=== PATIENT | male | born 1960 | race Caucasian/White ===

== ENCOUNTER 2018-11-22 09:23 | Observation (INO) ==
[2018-11-22] MEDS ORDERED: Aspirin 325 MG TABLET PO ONE (09:39)
[2018-11-22] MEDS ORDERED: Nitroglycerin 0.4 MG TAB.SUBL SL PRN (09:39)
--- NOTE | 2018-11-22 09:42 | Emergency Department Note ---
Disposition Clinical Impression: Elevated troponin Chest pain Qualifiers: Chest pain type: unspecified Qualified Code(s): R07.9 - Chest pain, unspecified Disposition: Admitted As Inpatient Condition: Good Referrals: Hayden Hurd DO [Primary Care Provider] - Forms: ED Satisfaction Letter Time of Disposition: 10:54 Chest Pain HPI - General Chief Complaint: ED Chest Pain Stated Complaint: chest pain Time Seen by Provider: 11/22/18 09:25 Source: patient Mode of arrival: ambulatory Limitations: no limitations Vital Signs Reviewed: Yes Nursing Notes Reviewed: Yes - History of Present Illness HPI Narrative: 58-year-old male with history of coronary artery disease with 2 stents, tobacco use, COPD presents for evaluation of chest pain. Patient states symptom onset was last night initially with some neck and shoulder pain. Patient states that has since resolved and is complaining of primarily left-sided chest pressure that started upon waking up this morning. Patient also notes some left shoulder pain this morning as well. Denies any nausea vomiting or diaphoresis. Denies any fevers. No dyspnea. Patient does have a chronic cough. Patient's on dual antiplatelet therapy. No abdominal pain. No recent travel or history of DVT or PE. Severity scale (1-10): 3 - Related Data Home Medications Medication Instructions Recorded Confirmed Loratadine [Claritin] 10 mg PO DAILY 09/02/18 10/05/18 Oxycodone HCl/Acetaminophen 1 tab PO Q6H PRN 09/02/18 10/20/18 [Percocet 5-325 mg Tablet] Pantoprazole Sodium [Protonix] 40 mg PO DAILY 09/02/18 10/20/18 Amitriptyline HCl 25 mg PO DAILY 10/05/18 10/05/18 Clopidogrel [Plavix] 75 mg PO DAILY 10/05/18 10/20/18 Lisinopril [Zestril] 2.5 mg PO DAILY 10/05/18 10/20/18 Sertraline [Zoloft] 50 mg PO DAILY 10/05/18 10/20/18 Metoprolol XL (24 HR) Succ [Toprol 25 mg PO DAILY 10/20/18 Xl] Previous Rx's Medication Instructions Recorded Aspirin 81 mg PO DAILY #30 tab.chew 09/04/18 Rosuvastatin [Crestor] 40 mg PO HS #30 tablet 09/04/18 Ticagrelor [Brilinta] 90 mg PO BID #60 tablet 09/04/18 Allergies Allergy/AdvReac Type Severity Reaction Status Date / Time gabapentin [From Neurontin] AdvReac See Verified 06/28/18 07:42 Comments All systems ED: reviewed and negative except as stated. Constitutional: Denies: fever Cardiovascular: Reports: chest pain Respiratory: Reports: cough Gastrointestinal: Denies: abdominal pain, nausea, vomiting Chest Pain PMH - Past Medical History Medical history: Reports: arthritis, COPD, coronary artery disease, GERD, hyperlipidemia, myocardial infarction Psychiatric history: Reports: depression - Social History Smoking Status: Current every day smoker Alcohol use: Reports: none Drug use: Reports: none Physical Exam - General Limitations: no limitations General appearance: alert, in no apparent distress - Head Head exam: atraumatic, normocephalic, normal inspection - Eye Eye exam: Present: normal appearance, PERRL, EOMI - ENT ENT exam: normal exam - Neck Neck exam: Present: normal inspection - Chest Chest inspection: Present: normal inspection, symmetric chest wall rise - Respiratory Respiratory exam: Present: normal lung sounds bilaterally, prolonged expiratory phase. Absent: respiratory distress - Cardiovascular Cardiovascular exam: Present: regular rate, normal rhythm. Absent: normal heart sounds - Abdominal Exam Abdominal exam: Present: soft, Non-Tender - Extremities Exam Extremities exam: Present: normal inspection. Absent: pedal edema - Back Exam Back exam: Present: normal inspection - Neurological Exam Neurological exam: Present: alert, oriented X3, CN II-XII intact - Skin Skin exam: Present: warm, dry, intact, normal color Course - Reevaluation(s) Reevaluation #1: Patient seen and examined. Patient does have known coronary artery disease has recent heart attack within the past couple months with stents. Patient will get basic cardiopulmonary screening labs EKG chest x-ray. Disposition will likely be admission Time: 09:43 Reevaluation #2: Patient denies any chest pain currently. Time: 10:28 Vital Signs Temperature 98.2 F 11/22/18 09:31 Pulse Rate 73 11/22/18 09:31 Respiratory Rate 18 11/22/18 09:31 Blood Pressure 111/70 11/22/18 09:31 O2 Sat by Pulse Oximetry 97 11/22/18 09:31 Temperature 98.2 F 11/22/18 09:31 Pulse Rate 71 11/22/18 10:11 Respiratory Rate 18 11/22/18 10:11 Blood Pressure 107/69 11/22/18 10:11 O2 Sat by Pulse Oximetry 97 11/22/18 10:11 Oxygen Delivery Oxygen Delivery Room Air Chest Pain - Lab Data Result diagrams: 11/22/18 09:45 11/22/18 09:45 Lab Results 11/22/18 11/22/18 11/22/18 Range/Units 09:45 09:45 09:45 WBC 8.0 (4.3-11.1) K/mcL RBC 4.41 (4.19-5.50) M/mcL Hgb 14.2 (12.9-16.9) g/dL Hct 41.3 (37.5-50.1) % MCV 93.7 (83.0-100.0) fL MCH 32.2 (28.0-33.3) pg MCHC 34.4 (31.6-35.5) g/dL RDW 13.1 (11.5-14.5) % Plt Count 187 (140-400) K/mcL MPV 9.6 (9.4-12.4) fL Immature Gran % 0.6 (0-4) % Seg Neutrophils % 77.4 % Lymphocytes % 17.2 % Monocytes % 3.0 % Eosinophils % 1.6 % Basophils % 0.2 % Neutrophils # 6.2 (1.6-8.9) K/mcL Lymphocytes # 1.4 (0.6-4.6) K/mcL Monocytes # 0.2 (0.0-1.3) K/mcL Eosinophils # 0.1 (0.0-0.6) K/mcL Basophils # 0.0 (0.0-0.2) K/mcL PT 11.3 (9.4-12.1) Seconds INR 1.0 APTT 30.7 (26.0-36.0) Seconds Sodium 137 (136-145) mEq/L Potassium 3.7 (3.5-5.1) mEq/L Chloride 106 (98-107) mEq/L Carbon Dioxide 23 (23-29) mEq/L BUN 15 (8-23) mg/dL Creatinine 0.76 (0.70-1.30) mg/dL Est GFR ( Amer) > 60 (> 60) Est GFR (Non-Af Amer) > 60 (> 60) BUN/Creatinine Ratio 20 (6-26) Glucose 226 H (70-105) mg/dL Calculated Osmolality 292 (280-300) Calcium 9.0 (8.6-10.3) mg/dL Troponin I 0.05 H* (< 0.04) ng/mL - EKG Data EKG attestation: Yes I reviewed and interpreted this EKG. EKG shows normal: sinus rhythm Rate: normal Rhythm: NSR [place]/QRS: normal T wave inversions noted in: v6 Interpretation: nonspecific ST-T wave changes Heart Score - Score History: Highly Suspicious EKG: Non Specific repolarisation Disturbance Age: 45-65 Risk Factors: Equal/Greater than 3 risk factor or history of atherosclerotic disease Troponin: 1-3x normal limit HEART Score Total: 7
[2018-11-22 10:01] LABS: Basophils % 0.2 %; Eosinophils # 0.1 K/mcL (0.0-0.6); Eosinophils % 1.6 %; Hematocrit 41.3 % (37.5-50.1); Hemoglobin 14.2 g/dL (12.9-16.9); Immature Granulocytes % 0.6 % (0-4); Lymphocytes # 1.4 K/mcL (0.6-4.6); Lymphocytes % 17.2 %; Mean Corpuscular HGB Conc 34.4 g/dL (31.6-35.5); Mean Corpuscular Hemoglobin 32.2 pg (28.0-33.3); Mean Corpuscular Volume 93.7 fL (83.0-100.0); Mean Platelet Volume 9.6 fL (9.4-12.4); Monocytes # 0.2 K/mcL (0.0-1.3); Neutrophils # 6.2 K/mcL (1.6-8.9); Platelet Count 187 K/mcL (140-400); Red Blood Count 4.41 M/mcL (4.19-5.50); Red Cell Distribution Width 13.1 % (11.5-14.5); Segmented Neutrophils % 77.4 %
[2018-11-22 10:09] LABS: Prothrombin Time 11.3 Seconds (9.4-12.1)
[2018-11-22 10:11] LABS: Activated Partial Thrombo Time 30.7 Seconds (26.0-36.0)
[2018-11-22 10:20] LABS: BUN/Creatinine Ratio 20 (6-26); Blood Urea Nitrogen 15 mg/dL (8-23); Carbon Dioxide 23 mEq/L (23-29); Chloride 106 mEq/L (98-107); Glucose 226 mg/dL (70-105); Osmolality,Calculated 292 (280-300); Potassium 3.7 mEq/L (3.5-5.1); Sodium 137 mEq/L (136-145); eGFR For Non-African Americans > 60 (> 60)
[2018-11-22 10:24] LABS: Troponin I 0.05 ng/mL (< 0.04)
--- NOTE | 2018-11-22 10:46 | Emergency Department Note ---
Disposition Clinical Impression: Elevated troponin Chest pain Qualifiers: Chest pain type: unspecified Qualified Code(s): R07.9 - Chest pain, unspecified Disposition: Admitted As Inpatient Condition: Good Referrals: Hayden Hurd DO [Primary Care Provider] - Forms: ED Satisfaction Letter Time of Disposition: 10:46 General Adult HPI - General Chief complaint: ED Chest Pain Stated complaint: chest pain Time Seen by Provider: 11/22/18 09:25 Source: patient Mode of arrival: ambulatory Limitations: no limitations - History of Present Illness Pain Scale: 3 - Related Data Home Medications Medication Instructions Recorded Confirmed Loratadine [Claritin] 10 mg PO DAILY 09/02/18 10/05/18 Oxycodone HCl/Acetaminophen 1 tab PO Q6H PRN 09/02/18 10/20/18 [Percocet 5-325 mg Tablet] Pantoprazole Sodium [Protonix] 40 mg PO DAILY 09/02/18 10/20/18 Amitriptyline HCl 25 mg PO DAILY 10/05/18 10/05/18 Clopidogrel [Plavix] 75 mg PO DAILY 10/05/18 10/20/18 Lisinopril [Zestril] 2.5 mg PO DAILY 10/05/18 10/20/18 Sertraline [Zoloft] 50 mg PO DAILY 10/05/18 10/20/18 Metoprolol XL (24 HR) Succ [Toprol 25 mg PO DAILY 10/20/18 Xl] Previous Rx's Medication Instructions Recorded Aspirin 81 mg PO DAILY #30 tab.chew 09/04/18 Rosuvastatin [Crestor] 40 mg PO HS #30 tablet 09/04/18 Ticagrelor [Brilinta] 90 mg PO BID #60 tablet 09/04/18 Allergies Allergy/AdvReac Type Severity Reaction Status Date / Time gabapentin [From Neurontin] AdvReac See Verified 06/28/18 07:42 Comments Constitutional: Denies: fever Cardiovascular: Reports: chest pain Respiratory: Reports: cough Gastrointestinal: Denies: abdominal pain, nausea, vomiting Past Medical History - Past Medical History Medical history: Reports: arthritis, COPD, coronary artery disease, GERD, hyperlipidemia, myocardial infarction Psychiatric history: Reports: depression - Social History Smoking Status: Current every day smoker Smokeless Tobacco Status: No Alcohol use: Reports: none Drug use: Reports: none Physical Exam - General Limitations: no limitations General appearance: alert, in no apparent distress Course Vital Signs Temperature 98.2 F 11/22/18 09:31 Pulse Rate 73 11/22/18 09:31 Respiratory Rate 18 11/22/18 09:31 Blood Pressure 111/70 11/22/18 09:31 O2 Sat by Pulse Oximetry 97 11/22/18 09:31 Temperature 98.2 F 11/22/18 09:31 Pulse Rate 71 11/22/18 10:11 Respiratory Rate 18 11/22/18 10:11 Blood Pressure 107/69 11/22/18 10:11 O2 Sat by Pulse Oximetry 97 11/22/18 10:11 Oxygen Delivery Oxygen Delivery Room Air Medical Decision Making - Lab Data Result diagrams: 11/22/18 09:45 11/22/18 09:45 Lab Results 11/22/18 11/22/18 11/22/18 Range/Units 09:45 09:45 09:45 WBC 8.0 (4.3-11.1) K/mcL RBC 4.41 (4.19-5.50) M/mcL Hgb 14.2 (12.9-16.9) g/dL Hct 41.3 (37.5-50.1) % MCV 93.7 (83.0-100.0) fL MCH 32.2 (28.0-33.3) pg MCHC 34.4 (31.6-35.5) g/dL RDW 13.1 (11.5-14.5) % Plt Count 187 (140-400) K/mcL MPV 9.6 (9.4-12.4) fL Immature Gran % 0.6 (0-4) % Seg Neutrophils % 77.4 % Lymphocytes % 17.2 % Monocytes % 3.0 % Eosinophils % 1.6 % Basophils % 0.2 % Neutrophils # 6.2 (1.6-8.9) K/mcL Lymphocytes # 1.4 (0.6-4.6) K/mcL Monocytes # 0.2 (0.0-1.3) K/mcL Eosinophils # 0.1 (0.0-0.6) K/mcL Basophils # 0.0 (0.0-0.2) K/mcL PT 11.3 (9.4-12.1) Seconds INR 1.0 APTT 30.7 (26.0-36.0) Seconds Sodium 137 (136-145) mEq/L Potassium 3.7 (3.5-5.1) mEq/L Chloride 106 (98-107) mEq/L Carbon Dioxide 23 (23-29) mEq/L BUN 15 (8-23) mg/dL Creatinine 0.76 (0.70-1.30) mg/dL Est GFR ( Amer) > 60 (> 60) Est GFR (Non-Af Amer) > 60 (> 60) BUN/Creatinine Ratio 20 (6-26) Glucose 226 H (70-105) mg/dL Calculated Osmolality 292 (280-300) Calcium 9.0 (8.6-10.3) mg/dL Troponin I 0.05 H* (< 0.04) ng/mL Attestation Statement - Attestation Attestation: I examined this patient and my medical decision-making was reviewed with the Resident Physician. I agree with the documented findings, disposition and treatment plan as described except to the extent set forth below. 58 year old male presnts ot the ED with chest pain and has a moderate heart score and has bene treated with ASA and chest pain free now. troponin is positive at 0.05 and non ischemic ekg. admitted to medicine
[2018-11-22] MEDS ORDERED: Naloxone 0.4 MG/ML INJ IVP PRN ×2 (13:07→13:08)
[2018-11-22] MEDS ORDERED: Ondansetron 4 MG/2 ML VIAL IVP PRN (13:08)
[2018-11-22] MEDS ORDERED: Acetaminophen 325 MG TABLET PO PRN (13:08)
--- NOTE | 2018-11-22 13:50 | Internal Med History&Physical ---
Date of Encounter: 11/22/18 Time of Encounter: 13:48 Internal Medicine - H&P: HPI Chief complaint: CP Admitted From: Emergency Dept Plans for Post Hospital Care: Home History of present illness: Mr. King is a 58 year old male medical history of hyperlipidemia COPD GERD tobacco use STEMI CAD cardiac catheterization x 2 stent placements-in September 2017-presented to [facility] with complaints of midsternal nonradiating chest pain which she describes as sharp and intermittent with no relieving or aggravating factors. Pain started last night while at rest. Denies any associated symptoms of diaphoresis shortness of breath nausea vomiting lightheaded or palpitations. Patient has been on dual antiplatelet therapy status post stent placement in September 2018. Patient states that he was on aspirin and Brilinta however he was u nable to afford Brilinta and was transitioned to Plavix. He states that he has been compliant with his medications however he also admits that he does not take them at the same time every day lab work did show an elevation in troponin 0.05 chest x-ray unremarkable-no EKG to review at this time. We will obtain EKG now. Currently patient complains of 3 out of 10 chest pain which is intermittent. He is hemodynamically stable at this time he will be admitted for further work up and evaluation of chest pain. Past Med Surg Social Fam HX - Past Medical History Medical history: arthritis, COPD, coronary artery disease, GERD, hyperlipidemia, myocardial infarction Additional medical history: chronic back pain Psychiatric history: depression - Past Surgical History Additional surgical history: back surgery, teeth extraction(all), 2 heart stents - Social History Smoking Status: Current every day smoker Smokeless Tobacco Status: No Alcohol use: none Drug use: none - Family History Father Living Status: Hx Family Cardiac Disorders: Yes (Uncle's) Hx Family Respiratory Disorders: No Hx Family Cancer: Yes (Sisters, Dad-skin cancer, Brother-skin cancer) Hx Family GI Disorders: Yes (Mother- age 80, complications from GB surgery) Hx Family Endocrine Disorder: Yes (Mother DM,Thyroid) Hx Family Neuromuscular Disorders: No Hx Family Neurologic Disorders: Yes (Dad Alzheimer's, CVA, Brother-CVA) Hx Family HEENT Disorders: No Hx Family Autoimmune Disorders: No Internal Medicine - H&P: Meds Loratadine [Claritin] 10 mg PO DAILY 09/02/18 [History] Oxycodone HCl/Acetaminophen [Percocet 5-325 mg Tablet] 1 tab PO Q6H PRN 09/02/18 [History] Pantoprazole Sodium [Protonix] 40 mg PO DAILY 09/02/18 [History] Aspirin 81 mg PO DAILY #30 tab.chew 09/04/18 [Rx] Rosuvastatin [Crestor] 40 mg PO HS #30 tablet 09/04/18 [Rx] Ticagrelor [Brilinta] 90 mg PO BID #60 tablet 09/04/18 [Rx] Amitriptyline HCl 25 mg PO DAILY 10/05/18 [History] Clopidogrel [Plavix] 75 mg PO DAILY 10/05/18 [History] Lisinopril [Zestril] 2.5 mg PO DAILY 10/05/18 [History] Sertraline [Zoloft] 50 mg PO DAILY 10/05/18 [History] Metoprolol XL (24 HR) Succ [Toprol Xl] 25 mg PO DAILY 10/20/18 [History] Allergy/AdvReac Type Severity Reaction Status Date / Time gabapentin [From Neurontin] AdvReac See Verified 06/28/18 07:42 Comments All Systems PM: A 10-system review of systems was performed and is negative for pertinent findings except as documented above in the HPI. - Constitutional Constitutional: no chills, no fever(s), no night sweats - EENT Eyes: no change in vision, no discharge, no pain, no photophobia Ears: no ear discharge, no ear pain, no tinnitus Nose, mouth and throat: no dysphagia, no nasal discharge, no neck pain, no sore throat - Cardiovascular Cardiovascular ROS IM: chest pain, no diaphoresis, no dyspnea, no lightheadedness, no palpitations, no syncope - Respiratory Respiratory: cough, no dyspnea, no wheezing, no excessive phlegm production - Gastrointestinal Gastrointestinal: no abdominal pain, no diarrhea, no hematemesis, no hematochezia, no melena, no nausea, no vomiting - Musculoskeletal Musculoskeletal ROS IM: no numbness, no tingling - Integumentary Integumentary IM: no rash, no unusual bruising - Neurological Neurological ROS: no confusion, no convulsions, no focal weakness, no numbness, no tingling, no tremor(s) - Hematologic/Lymphatic Hematologic/Lymphatic: no easy bruising - Constitutional Vitals: Temp Pulse Resp BP Pulse Ox 97.5 F L 65 16 106/66 98 11/22/18 12:29 11/22/18 12:29 11/22/18 12:29 11/22/18 12:29 11/22/18 12:29 Exam: Skin: Free of rash and discoloration. Eyes: Sclera is white. There is no discharge from eyes. ENMT: Oral/pharyngeal mucosa is normal in appearance. There is no discharge from nose or ears. Respiratory: Normal breath sounds with no crackles and wheezes bilaterally. CV: Heart is regular with no gallop or murmur. GI: Abdomen is flat and soft with no palpable mass or visceromegaly. : There is no tenderness in patient's flanks bilaterally. Neuro exam: He has good strength in upper and lower extremities. He has normal eye movements. Psychiatric: He has normal affect. His thought process is appropriate to the situation. Internal Med - H&P Results - Labs CBC & Chem 7: 11/22/18 09:45 11/22/18 09:45 Labs: Short CBC 11/22/18 Range/Units 09:45 WBC 8.0 (4.3-11.1) K/mcL Hgb 14.2 (12.9-16.9) g/dL Hct 41.3 (37.5-50.1) % Plt Count 187 (140-400) K/mcL Neutrophils # 6.2 (1.6-8.9) K/mcL BMP 11/22/18 09:45 Sodium 137 Potassium 3.7 Chloride 106 Carbon Dioxide 23 BUN 15 Creatinine 0.76 Glucose 226 H Calcium 9.0 Cardiac Enzymes 11/22/18 Range/Units 09:45 Troponin I 0.05 H* (< 0.04) ng/mL - Impressions ITS Impressions Chest X-Ray 11/22/18 09:25 IMPRESSION: No acute cardiopulmonary process. D/ / Kaelyn Madison MD / Kaelyn Madison MD Interpreting Provider: Kaelyn Madison MD - Assessment and Plan (1) Chest pain Current Visit: Yes Status: Acute Assessment and plan: Patient has a history of CAD with stent placements 2 in September 2018 as well as a STEMI August 2018-resented with left-sided chest pain occurring at rest initial troponin was elevated 0.05 Cardiac echo September 2018 Impressions: LVEF 40-45%. Normal LV chamber size, wall thickness. Mild global left ventricular systolic dysfunction. LVEF has improved compared to prior reports. We will continue to trend troponins cardiac monitoring Continue with aspirin and Plavix statin BB Nitroglycerin as needed for chest pain Cardiology has been consulted Qualifiers: Chest pain type: unspecified Qualified Code(s): R07.9 - Chest pain, unspecified (2) Elevated troponin Current Visit: Yes Status: Acute Assessment and plan: Experiencing chest pain-history of STEMI recent stent placements initial troponin 0.05 continue to trend Cardiology has been consulted (3) Tobacco use Current Visit: No Status: Chronic Assessment and plan: Patient is a current smoker encourage patient stop smoking nicotine patch as needed (4) DVT prophylaxis Current Visit: Yes Status: Acute Assessment and plan: 1 heparin subcutaneous - Time Spent With Patient Total time spent is greater than 50% in coordination of care (as documented) at patient's floor/unit and/or counseling patient:
--- NOTE | 2018-11-22 16:59 | AcuteCare Surgery Consult Note ---
Date of Encounter: 11/22/18 Time of Encounter: 17:00 Past Med Surg Social Fam HX - Past Medical History Medical history: arthritis, COPD, coronary artery disease, GERD, hyperlipidemia, myocardial infarction Additional medical history: chronic back pain Psychiatric history: depression - Past Surgical History Additional surgical history: back surgery, teeth extraction(all), 2 heart stents - Social History Smoking Status: Current every day smoker Smokeless Tobacco Status: No Alcohol use: none Drug use: none - Family History Father Living Status: Hx Family Cardiac Disorders: Yes (Uncle's) Hx Family Respiratory Disorders: No Hx Family Cancer: Yes (Sisters, Dad-skin cancer, Brother-skin cancer) Hx Family GI Disorders: Yes (Mother- age 80, complications from GB surgery) Hx Family Endocrine Disorder: Yes (Mother DM,Thyroid) Hx Family Neuromuscular Disorders: No Hx Family Neurologic Disorders: Yes (Dad Alzheimer's, CVA, Brother-CVA) Hx Family HEENT Disorders: No Hx Family Autoimmune Disorders: No Medications and Allergies Loratadine [Claritin] 10 mg PO DAILY 09/02/18 [History] Oxycodone HCl/Acetaminophen [Percocet 5-325 mg Tablet] 1 tab PO Q6H PRN 09/02/18 [History] Pantoprazole Sodium [Protonix] 40 mg PO DAILY 09/02/18 [History] Aspirin 81 mg PO DAILY #30 tab.chew 09/04/18 [Rx] Rosuvastatin [Crestor] 40 mg PO HS #30 tablet 09/04/18 [Rx] Ticagrelor [Brilinta] 90 mg PO BID #60 tablet 09/04/18 [Rx] Amitriptyline HCl 25 mg PO DAILY 10/05/18 [History] Clopidogrel [Plavix] 75 mg PO DAILY 10/05/18 [History] Lisinopril [Zestril] 2.5 mg PO DAILY 10/05/18 [History] Sertraline [Zoloft] 50 mg PO DAILY 10/05/18 [History] Metoprolol XL (24 HR) Succ [Toprol Xl] 25 mg PO DAILY 10/20/18 [History] Allergy/AdvReac Type Severity Reaction Status Date / Time gabapentin [From Neurontin] AdvReac See Verified 06/28/18 07:42 Comments Review of Systems All systems PM: The remainder of the systems were reviewed and are negative General Surgery Exam Initial Vital Signs Temp Pulse Resp BP Pulse Ox 98.2 F 73 18 111/70 97 11/22/18 09:31 11/22/18 09:31 11/22/18 09:31 11/22/18 09:31 11/22/18 09:31 Exam Initial Vital Signs Temp Pulse Resp BP Pulse Ox 98.2 F 73 18 111/70 97 11/22/18 09:31 11/22/18 09:31 11/22/18 09:31 11/22/18 09:31 11/22/18 09:31 Results - Labs 11/22/18 09:45 11/22/18 09:45 Abnormal lab results Glucose 226 mg/dL (70-105) H 11/22/18 09:45 0.05 ng/mL (< 0.04) H* 11/22/18 15:38 Diabetes panel 11/22/18 Range/Units 09:45 Sodium 137 (136-145) mEq/L Potassium 3.7 (3.5-5.1) mEq/L Chloride 106 (98-107) mEq/L Carbon Dioxide 23 (23-29) mEq/L BUN 15 (8-23) mg/dL Creatinine 0.76 (0.70-1.30) mg/dL Glucose 226 H (70-105) mg/dL Calcium 9.0 (8.6-10.3) mg/dL Calcium panel 11/22/18 Range/Units 09:45 Calcium 9.0 (8.6-10.3) mg/dL Pituitary panel 11/22/18 Range/Units 09:45 Sodium 137 (136-145) mEq/L Potassium 3.7 (3.5-5.1) mEq/L Chloride 106 (98-107) mEq/L Carbon Dioxide 23 (23-29) mEq/L BUN 15 (8-23) mg/dL Creatinine 0.76 (0.70-1.30) mg/dL Glucose 226 H (70-105) mg/dL Calcium 9.0 (8.6-10.3) mg/dL Adrenal panel 11/22/18 Range/Units 09:45 Sodium 137 (136-145) mEq/L Potassium 3.7 (3.5-5.1) mEq/L Chloride 106 (98-107) mEq/L Carbon Dioxide 23 (23-29) mEq/L BUN 15 (8-23) mg/dL Creatinine 0.76 (0.70-1.30) mg/dL Glucose 226 H (70-105) mg/dL Calcium 9.0 (8.6-10.3) mg/dL All other labs normal. Consult Discharge Plan - Plan Referrals: Hayden Hurd DO [Primary Care Provider] -
--- NOTE | 2018-11-22 23:09 | Electrocardiograph Report ---
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
--- NOTE | 2018-11-23 08:05 | Electrocardiograph Report ---
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
[2018-11-23] MEDS ORDERED: Metoprolol XL (24 HR) Succ 25 MG TAB.ER.24H PO SCH (09:00)
[2018-11-23] MEDS ORDERED: *HR* Ticagrelor 90 MG TABLET PO SCH (09:00)
[2018-11-23] MEDS: Aspirin 81 MG TAB.CHEW PO SCH (09:26)
[2018-11-23 09:31] LABS: Basophils % 0.5 %; Eosinophils # 0.2 K/mcL (0.0-0.6); Hematocrit 42.6 % (37.5-50.1); Hemoglobin 14.5 g/dL (12.9-16.9); Immature Granulocytes % 0.6 % (0-4); Lymphocytes # 1.7 K/mcL (0.6-4.6); Lymphocytes % 24.8 %; Mean Corpuscular Hemoglobin 31.8 pg (28.0-33.3); Mean Corpuscular Volume 93.4 fL (83.0-100.0); Mean Platelet Volume 9.9 fL (9.4-12.4); Monocytes # 0.5 K/mcL (0.0-1.3); Monocytes % 7.4 %; Neutrophils # 4.2 K/mcL (1.6-8.9); Platelet Count 190 K/mcL (140-400); Red Blood Count 4.56 M/mcL (4.19-5.50); Red Cell Distribution Width 13.1 % (11.5-14.5); Segmented Neutrophils % 63.7 %
[2018-11-23 09:49] LABS: BUN/Creatinine Ratio 18 (6-26); Blood Urea Nitrogen 14 mg/dL (8-23); Calcium 8.7 mg/dL (8.6-10.3); Carbon Dioxide 25 mEq/L (23-29); Chloride 107 mEq/L (98-107); Chol/HDL Ratio 3.7 (0-4.9); Cholesterol 134 mg/dL (< 200); Glucose 100 mg/dL (70-105); HDL Cholesterol 36 mg/dL (40-59); LDL Cholesterol,Calculated 79 mg/dL (0-99); Osmolality,Calculated 289 (280-300); Potassium 4.2 mEq/L (3.5-5.1); Sodium 139 mEq/L (136-145); Triglycerides 96 mg/dL (< 150); eGFR For Non-African Americans > 60 (> 60)
[2018-11-23] MEDS ORDERED: *HR* OxyCODONE/APAP 5/325 TABLET PO PRN (11:34)
--- NOTE | 2018-11-23 11:40 | Internal Med Progress Note ---
Hospitalist Progress Note - Encounter Date of Encounter: 11/23/18 Time of Encounter: 11:37 - Subjective Interval History: Patient seen and examined in the room. He has no chest pain currently, he denies shortness breath, palpitation, or lightheadedness. - Exam Vitals: Temp Pulse Resp BP Pulse Ox 98.1 F 64 16 115/71 96 11/23/18 10:32 11/23/18 10:32 11/23/18 10:32 11/23/18 10:32 11/23/18 10:32 Exam: Skin: Free of rash and discoloration. Eyes: Sclera is white. There is no discharge from eyes. ENMT: Oral/pharyngeal mucosa is normal in appearance. There is no discharge from nose or ears. Respiratory: Normal breath sounds with no crackles and wheezes bilaterally. CV: Heart is regular with no gallop or murmur. GI: Abdomen is flat and soft with no palpable mass or visceromegaly. : There is no tenderness in patient's flanks bilaterally. Neuro exam: He has good strength in upper and lower extremities. He has normal eye movements. Psychiatric: He has normal affect. His thought process is appropriate to the situation. - Assessment and Plan (1) Chest pain Current Visit: Yes Status: Acute Assessment and Plan: 11/22 Patient has a history of CAD with stent placements 2 in September 2018 as well as a STEMI August 2018-resented with left-sided chest pain occurring at rest initial troponin was elevated 0.05 Cardiac echo September 2018 Impressions: LVEF 40-45%. Normal LV chamber size, wall thickness. Mild global left ventricular systolic dysfunction. LVEF has improved compared to prior reports. We will continue to trend troponins cardiac monitoring Continue with aspirin and Plavix statin BB Nitroglycerin as needed for chest pain Cardiology has been consulted. 11/23 Troponin was at a flat rate, inconsistent with acute ND. he has no chest pain, he is currently on aspirin and Plavix. Cardiology consulted. (2) Elevated troponin Current Visit: Yes Status: Acute Assessment and Plan: Experiencing chest pain-history of STEMI recent stent placements. trop at a flat level 0.05, inconsistent with acute ND. Cardiology has been consulted (3) Tobacco use Current Visit: No Status: Chronic Assessment and Plan: Patient is a current smoker encourage patient stop smoking nicotine patch as needed (4) DVT prophylaxis Current Visit: Yes Status: Acute Assessment and Plan: heparin subcutaneous - Time Spent with Patient Total time spent is greater than 50% in coordination of care (as documented) at patient's floor/unit and/or counseling patient: Greater than 35 minutes Plan of Care Discussed with: patient Internal Medicine: Result - Labs CBC & Chem 7: 11/23/18 08:28 11/23/18 08:28 Labs: Short CBC 11/23/18 Range/Units 08:28 WBC 6.7 (4.3-11.1) K/mcL Hgb 14.5 (12.9-16.9) g/dL Hct 42.6 (37.5-50.1) % Plt Count 190 (140-400) K/mcL Neutrophils # 4.2 (1.6-8.9) K/mcL BMP 11/23/18 08:28 Sodium 139 Potassium 4.2 Chloride 107 Carbon Dioxide 25 BUN 14 Creatinine 0.76 Glucose 100 Calcium 8.7 Cardiac Enzymes 11/22/18 11/23/18 Range/Units 15:38 08:28 Troponin I 0.05 H* 0.05 H* (< 0.04) ng/mL - ABG Interpretation ABG results: PT/INR, D-dimer PT 11.3 Seconds (9.4-12.1) 11/22/18 09:45 Consult Discharge Plan - Plan Referrals: Hayden Hurd DO [Primary Care Provider] - (1) Chest pain Qualifiers: Chest pain type: unspecified Qualified Code(s): R07.9 - Chest pain, unspecified
--- NOTE | 2018-11-23 12:41 | Cardiology Consult Note ---
Date of Encounter: 11/23/18 Time of Encounter: 12:41 Assessment and Plan (1) Chest pain Current Visit: Yes Status: Acute CC of midsternal nonradiating chest pain which he describes as sharp and intermittent with no alleviating or exacerbating factors, radiation to left neck/shoulder. Symptoms are similar to prior anginal equivalent. Reports compliance with DAPT. No acute ischemic ECG changes. TTE 09/02/18: LVEF 35%. Global and regional LV systolic dysfunction. Mild LVDD. There is no LV thrombus. Definity echo contrast was used. Normal RV structure a nd function. Mild MR. Mild OR. No phtn. [facility] 10/05/18 staged PTCA/Drug-Eluting Stent placement in the distal RCA. [facility] 09/02/18: Severe 1V CAD, EF 35%. Successful PTCA/AIDEN in large OM. Will recheck TTE. Discussed with Dr. Morales. Will add Imdur 30mg daily. Will re- evaluate symptoms in AM. Qualifiers: Chest pain type: unspecified Qualified Code(s): R07.9 - Chest pain, unspecified (2) Elevated troponin Current Visit: Yes Status: Acute Troponin 0.05 x 2--flat and adynamic, nondiagnostic for ACS. Check TTE. (3) CAD (coronary artery disease) Current Visit: Yes Status: Acute S/P PCI to OM 08/2018, dRCA 09/2018. ASA, Plavix, Statin, BB, ACEi. Add Imdur 30mg daily. Qualifiers: Coronary Disease-Associated Artery/Lesion type: [place] artery [place] vs. transplanted heart: [place] heart Associated angina: angina presence uns pecified Qualified Code(s): I25.10 - Atherosclerotic heart disease of [place] coronary artery without angina pectoris Discussion w patient/family: The assessment and plan as outlined above was discussed with the patient and/or family members who expressed understanding and agreement. All questions were answered. Thank you for involving us in the care of your patient. Please call with any questions. I will discuss all the above with Dr. Morales and make changes as necessary. History of Present Illness Consult date: 11/23/18 Consult reason: elevated troponin Chief complaint: chest pain History of present illness: Mr. King is a 58 year old male with PMH of HLD, COPD, GERD, tobacco use, STEMI, CAD s/p PCI that presented to [facility] with complaints of midsternal nonradiating chest pain which he describes as sharp and intermittent with no relieving or aggravating factors. Pain started over the weekend. He reports radiation to l eft neck/shoulder. Symptoms are similar to prior anginal equivalent. Reports compliance with DAPT. Troponin 0.05 x 2. Cardiology consulted for further recs. Currently chest pain free. Prior CV testing: TTE 09/02/18: LVEF 35%. Global and regional LV systolic dysfunction. Mild LVDD. There is no LV thrombus. Definity echo contrast was used. Normal RV structure and function. Mild mitral regurgitation. Mild pulmonic regurgitation. No pulmonary hypertension. [facility] 10/05/18: There is severe one vessel coronary artery disease with otherwise nonobstructive CAD and patent OM stent. Patient had successful PTCA/Drug-Eluting Stent placement in the distal RCA. [facility] 09/02/18: Severe 1V CAD, EF 35%. Successful PTCA/AIDEN in large OM. Recommended staged PCI of RCA. Past Med Surg Social Fam HX - Past Medical History Medical history: arthritis, COPD, coronary artery disease, GERD, hyperlipidemia, myocardial infarction Additional medical history: chronic back pain Psychiatric history: depression - Past Surgical History Additional surgical history: back surgery, teeth extraction(all), 2 heart stents - Social History Smoking Status: Current every day smoker Smokeless Tobacco Status: No Alcohol use: none Drug use: none - Family History Father Living Status: Hx Family Cardiac Disorders: Yes (Uncle's) Hx Family Respiratory Disorders: No Hx Family Cancer: Yes (Sisters, Dad-skin cancer, Brother-skin cancer) Hx Family GI Disorders: Yes (Mother- age 80, complications from GB surgery) Hx Family Endocrine Disorder: Yes (Mother DM,Thyroid) Hx Family Neuromuscular Disorders: No Hx Family Neurologic Disorders: Yes (Dad Alzheimer's, CVA, Brother-CVA) Hx Family HEENT Disorders: No Hx Family Autoimmune Disorders: No Medications and Allergies Loratadine [Claritin] 10 mg PO DAILY 09/02/18 [History] Oxycodone HCl/Acetaminophen [Percocet 5-325 mg Tablet] 1 tab PO Q6H PRN 09/02/18 [History] Pantoprazole Sodium [Protonix] 40 mg PO DAILY 09/02/18 [History] Amitriptyline HCl 25 mg PO DAILY 10/05/18 [History] Clopidogrel [Plavix] 75 mg PO DAILY 10/05/18 [History] Lisinopril [Zestril] 2.5 mg PO DAILY 10/05/18 [History] Sertraline [Zoloft] 50 mg PO DAILY 10/05/18 [History] Metoprolol XL (24 HR) Succ [Toprol Xl] 12.5 mg PO DAILY 10/20/18 [History] Aspirin Enteric Coated [Aspirin EC] 81 mg PO DAILY 11/23/18 [History] Desvenlafaxine [Desvenlafaxine ER] 100 mg PO DAILY 11/23/18 [History] Rosuvastatin [Crestor] 40 mg PO DAILY 11/23/18 [History] Sildenafil Citrate [Revatio] 20 - 60 mg PO AD PRN 11/23/18 [History] Allergy/AdvReac Type Severity Reaction Status Date / Time gabapentin [From Neurontin] AdvReac See Verified 06/28/18 07:42 Comments All Systems Review: The remainder of the systems were reviewed and are negative - Cardiovascular Cardiovascular: as per HPI, chest pain at rest, radiating jaw, neck or arm pain Physical Examination Vital Signs, Last 4 Hours Temp Pulse Resp BP Pulse Ox 11/23/18 10:32 98.1 F 64 16 115/71 96 Vital Signs Temp Pulse Resp BP Pulse Ox 11/23/18 10:32 98.1 F 64 16 115/71 96 11/23/18 08:06 98 11/23/18 06:45 98.0 F 58 16 115/77 98 11/23/18 03:40 98.2 F 59 16 111/66 98 11/22/18 19:43 98.5 F 62 15 108/64 98 11/22/18 15:36 97.5 F L 72 16 106/57 97 Intake and Output 11/22/18 11/23/18 11/23/18 23:59 07:59 15:59 Intake Total 480 / 480 0 / 360 360 / 360 Output Total 0 / 0 Balance 480 / 480 0 / 360 360 / 360 Intake: Oral 480 / 480 0 / 360 360 / 360 Output: Urine 0 / 0 Other: Meal Dinner Breakfast Percent of Meal Consumed 85% 90% # Voids 1 1 # Bowel Movements 0 0 Weight 53.9 kg Patient Weight 11/23/18 23:59 Weight 53.9 kg General: Conversant, No Apparent Distress HEENT: Atraumatic, Normocephaly, Mucus Membranes Moist Neck: No JVD, Normal carotid pulses Cardiac: Reg Rate and Rhythm, Normal S1 and S2, No Murmur Lungs: Normal Breath Sounds, No Wheeze, Rales, Rhonchi Neuro: Alert and responsive, No focal deficits noted Abdomen: Soft, Non-Tender Skin: No rashes noted on visualized skin Musculoskeletal: No Chest Wall Tenderness Extremities: No Clubbing, No Cyanosis, No Edema, Normal Pulses Results 11/23/18 08:28 11/23/18 08:28 Lab Results 11/22/18 11/23/18 11/23/18 15:38 08:28 08:28 WBC 6.7 Hgb 14.5 Hct 42.6 Plt Count 190 Sodium Potassium Chloride Carbon Dioxide BUN Creatinine Glucose Calcium Magnesium Troponin I 0.05 H* 0.05 H* 11/23/18 08:28 WBC Hgb Hct Plt Count Sodium 139 Potassium 4.2 Chloride 107 Carbon Dioxide 25 BUN 14 Creatinine 0.76 Glucose 100 Calcium 8.7 Magnesium 2.0 Troponin I Short CBC 11/23/18 Range/Units 08:28 WBC 6.7 (4.3-11.1) K/mcL Hgb 14.5 (12.9-16.9) g/dL Hct 42.6 (37.5-50.1) % Plt Count 190 (140-400) K/mcL Neutrophils # 4.2 (1.6-8.9) K/mcL BMP 11/23/18 Range/Units 08:28 Sodium 139 (136-145) mEq/L Potassium 4.2 (3.5-5.1) mEq/L Chloride 107 (98-107) mEq/L Carbon Dioxide 25 (23-29) mEq/L BUN 14 (8-23) mg/dL Creatinine 0.76 (0.70-1.30) mg/dL Glucose 100 (70-105) mg/dL Calcium 8.7 (8.6-10.3) mg/dL Cardiac Enzymes 11/23/18 11/22/18 Range/Units 08:28 15:38 Troponin I 0.05 H* 0.05 H* (< 0.04) ng/mL Active Medications Acetaminophen (Tylenol) 650 mg PO Q6HR PRN PRN Reason: Mild Pain/Fever Stop: 05/24/19 13:09 Aspirin (Aspirin) 81 mg PO DAILY [facility] Stop: 05/25/19 09:01 Last Admin: 11/23/18 09:26 Dose: 81 mg Documented by: Clopidogrel Bisulfate (Plavix) 75 mg PO DAILY [facility] Stop: 05/25/19 09:01 Last Admin: 11/23/18 09:26 Dose: 75 mg Documented by: Lisinopril (Zestril) 2.5 mg PO DAILY [facility]; Protocol Stop: 05/26/19 09:01 Metoprolol Succinate (Toprol Xl) 25 mg PO DAILY [facility] Stop: 05/25/19 09:01 Last Admin: 11/23/18 09:26 Dose: 25 mg Documented by: Naloxone HCl (Narcan) 0.4 mg IVP Q2MPRN PRN PRN Reason: SEE COMMENTS Stop: 05/24/19 13:08 Nitroglycerin (Nitroglycerin) 0.4 mg SL Q5MPRN PRN PRN Reason: Chest Pain Stop: 05/24/19 09:40 Ondansetron HCl (Zofran) 4 mg IVP Q8HR PRN PRN Reason: Nausea And Vomiting Stop: 05/24/19 13:09 Oxycodone/Acetaminophen (Percocet 5/325) 1 each PO Q6H PRN PRN Reason: Pain Stop: 05/25/19 11:35 Last Admin: 11/23/18 12:03 Dose: 1 each Documented by: Rosuvastatin Calcium (Crestor) 40 mg PO DAILY [facility] Stop: 05/26/19 09:01 Sertraline HCl (Zoloft) 50 mg PO DAILY [facility] Stop: 05/26/19 09:01 - Imaging and Cardiology Echo: report reviewed Cardiac cath: report reviewed - EKG Interpretation EKG results cardiology: personally reviewed, other (12 hr tele AVG HR 62, SR) Consult Discharge Plan - Plan Referrals: Hayden Hurd DO [Primary Care Provider] -
[2018-11-23] MEDS: Isosorbide MONOnitrate (24 HR) 30 MG TAB.ER.24H PO SCH (13:33)
[2018-11-23] MEDS: *HR* OxyCODONE/APAP 5/325 TABLET PO PRN (17:41)
[2018-11-23] MEDS: Nicotine 14 MG PATCH.TD24 TD SCH (18:12)
[2018-11-24] MEDS: *HR* OxyCODONE/APAP 5/325 TABLET PO PRN ×3 (05:08→18:01)
[2018-11-24] MEDS ORDERED: Metoprolol XL (24 HR) Succ 25 MG TAB.ER.24H PO SCH (09:00)
[2018-11-24] MEDS: Aspirin 81 MG TAB.CHEW PO SCH (09:04)
[2018-11-24] MEDS: Isosorbide MONOnitrate (24 HR) 30 MG TAB.ER.24H PO SCH (09:05)
[2018-11-24] MEDS: Nicotine 14 MG PATCH.TD24 TD SCH (09:06)
--- NOTE | 2018-11-24 09:44 | Discharge Summary ---
- NOTES TO OUTPATIENT PROVIDER Notes to Outpatient Provider: F/u with PCP within 1-2 weeks. f/u with cardiology as scheduled. Orders not resulted at time of discharge: Pending orders 11/23/18 06:00 ECG 12 lead ECG [ECG] AM 0600 Date of Encounter: 11/24/18 Time of Encounter: 09:40 - Discharge Diagnosis (1) Chest pain Priority: Primary Status: Acute Qualifiers: Chest pain type: unspecified Qualified Code(s): R07.9 - Chest pain, unspecified (2) Elevated troponin Priority: Primary Status: Acute (3) Tobacco use Priority: Secondary Status: Chronic (4) CAD (coronary artery disease) Priority: Secondary Status: Chronic Qualifiers: Coronary Disease-Associated Artery/Lesion type: [place] artery [place] vs. transplanted heart: [place] heart Associated angina: angina presence unspecified Qualified Code(s): I25.10 - Atherosclerotic heart disease of [place] coronary artery without angina pectoris (5) DVT prophylaxis Priority: Primary Status: Acute Hospital course: Mr. King is a 58 year old male medical history of hyperlipidemia COPD GERD tobacco use STEMI CAD cardiac catheterization x 2 stent placements-in September 2017-presented to [facility] with complaints of midsternal nonradiating chest pain which she describes as sharp and intermittent with no relieving or aggravating factors. Pain started last night while at rest. Denies any associated symptoms of diaphoresis shortness of breath nausea vomiting lightheaded or palpitations. Patient has been on dual antiplatelet therapy status post stent placement in September 2018. Patient states that he was on aspirin and Brilinta however he was unable to afford Brilinta and was transitioned to Plavix. He states that he has been compliant with his medications however he also admits that he does not take them at the same time every day. lab work did show an elevation in troponin 0.05, chest x-ray unremarkable. EKG has no acute ST-T change. An echo cardiogram was repeated which revealed LV ejection fraction 45-50%, multiple wall motion abnormalities. Cardiology was consulted. Serial troponin showed flat level at 0.05, inconsistent with acute [place]. Imdur was introduced to cardiology recommendation, the patient chest pain has improved. On the discharge today, patient vital signs were stable, labs were unremarkable, he is chest pain free. He is discharged home today, continue current medications including aspirin and Plavix, continue follow-up with PCP and cardiology as scheduled. Patient was so strongly encouraged to stop smoking. He was instructed to not taking sildenafil while he is taking imdur or nitroglycerin. Discharge discussed with: patient Time spent discussing smoking cessation with patient: more than 10 minutes - Time Spent with Patient Total time spent providing and/or coordinating discharge services: Time spent: Greater than 30 minutes - Discharge Medications Prescriptions: New Isosorbide MONOnitrate (24 HR) [Imdur] 30 mg PO DAILY #30 tab.er.24h Nitroglycerin 0.4 mg SL Q5MPRN PRN #20 tab.subl PRN Reason: Chest Pain Continued Loratadine [Claritin] 10 mg PO DAILY Pantoprazole Sodium [Protonix] 40 mg PO DAILY Oxycodone HCl/Acetaminophen [Percocet 5-325 mg Tablet] 1 tab PO Q6H PRN PRN Reason: Pain Sertraline [Zoloft] 50 mg PO DAILY Amitriptyline HCl 25 mg PO DAILY Lisinopril [Zestril] 2.5 mg PO DAILY Clopidogrel [Plavix] 75 mg PO DAILY Metoprolol XL (24 HR) Succ [Toprol Xl] 12.5 mg PO DAILY Aspirin Enteric Coated [Aspirin EC] 81 mg PO DAILY Rosuvastatin [Crestor] 40 mg PO DAILY Desvenlafaxine [Desvenlafaxine ER] 100 mg PO DAILY Discontinued Sildenafil Citrate [Revatio] 20 - 60 mg PO AD PRN PRN Reason: ERECTION Home Medications: Loratadine [Claritin] 10 mg PO DAILY 09/02/18 [History] Oxycodone HCl/Acetaminophen [Percocet 5-325 mg Tablet] 1 tab PO Q6H PRN 09/02/18 [History] Pantoprazole Sodium [Protonix] 40 mg PO DAILY 09/02/18 [History] Amitriptyline HCl 25 mg PO DAILY 10/05/18 [History] Clopidogrel [Plavix] 75 mg PO DAILY 10/05/18 [History] Lisinopril [Zestril] 2.5 mg PO DAILY 10/05/18 [History] Sertraline [Zoloft] 50 mg PO DAILY 10/05/18 [History] Metoprolol XL (24 HR) Succ [Toprol Xl] 12.5 mg PO DAILY 10/20/18 [History] Aspirin Enteric Coated [Aspirin EC] 81 mg PO DAILY 11/23/18 [History] Desvenlafaxine [Desvenlafaxine ER] 100 mg PO DAILY 11/23/18 [History] Rosuvastatin [Crestor] 40 mg PO DAILY 11/23/18 [History] Isosorbide MONOnitrate (24 HR) [Imdur] 30 mg PO DAILY #30 tab.er.24h 11/24/18 [Rx] Nitroglycerin 0.4 mg SL Q5MPRN PRN #20 tab.subl 11/24/18 [Rx] Allergies/Adverse Reactions: Allergy/AdvReac Type Severity Reaction Status Date / Time gabapentin [From Neurontin] AdvReac See Verified 06/28/18 07:42 Comments Date of admission: 11/22/18 11:20 Primary care physician: Hayden Hurd DO Consults: 11/22/18 14:51 Consult to Cardiology [CONS] Routine Comment: Consulting Provider: Cardiology [place] Reason for Consult: CP elevated troponin Time Notified: 14:51 Call Completed: Yes Anticipated date of discharge: 11/24/18 - Constitutional Vitals: Temp Pulse Resp BP Pulse Ox 97.8 F 61 15 131/80 99 11/24/18 07:11 11/24/18 07:11 11/24/18 07:11 11/24/18 07:11 11/24/18 07:11 General appearance: Present: A&O X 3 Exam: PHYSICAL EXAMINATION: GENERAL APPEARANCE: The patient is alert, oriented and in no acute distress. HEENT: Head is normocephalic. The sinuses are nontender. Pupils are equal and reactive. The nares are patent. Oropharynx clear without lesions. NECK: Supple without lymphadenopathy. HEART: Regular rate and rhythm. LUNGS: No crackles or wheezes are heard. ABDOMEN: Soft, nontender, nondistended with good bowel sounds heard. Inguinal area is normal. EXTREMITIES: Without cyanosis, clubbing or edema. NEUROLOGICAL: Gross nonfocal. SKIN: Warm and dry without any rash. - Patient Status Disposition: Home, Self-Care Condition: Good Functional capacity at discharge: independent ambulation Overall status at discharge: patient is progressing back to baseline - Discharge Instructions Follow Up With: Hayden Hurd DO [Primary Care Provider] - - Diet and Activity Activity: increase activity as tolerated Diet: low fat, low cholesterol, low salt diet
--- NOTE | 2018-11-24 11:36 | Event Note ---
Date of Encounter: 11/24/18 Time of Encounter: 11:35 - Cardiology Event Note Pt seen and examined. Continues to have intermittent chest pain overnight similar to prior anginal equivalent. No improvement with Imdur. Given continued chest pain despite medical management, recommend [facility] to further evaluate. R/B/A discussed. Pt agrees to proceed. TTE resulted-- EF improved, 45-50%.
--- NOTE | 2018-11-24 11:42 | Internal Med Progress Note ---
Hospitalist Progress Note - Encounter Date of Encounter: 11/24/18 Time of Encounter: 11:40 - Subjective Interval History: Patient seen and examined in the room. He still reported intermittent chest pain overnight, Imdur was started yesterday by cardiology. - Exam Vitals: Temp Pulse Resp BP Pulse Ox 98.1 F 60 15 121/68 97 11/24/18 11:23 11/24/18 11:23 11/24/18 11:23 11/24/18 11:23 11/24/18 11:23 Exam: PHYSICAL EXAMINATION: GENERAL APPEARANCE: The patient is alert, oriented and in no acute distress. HEENT: Head is normocephalic. The sinuses are nontender. Pupils are equal and reactive. The nares are patent. Oropharynx clear without lesions. NECK: Supple without lymphadenopathy. HEART: Regular rate and rhythm. LUNGS: No crackles or wheezes are heard. ABDOMEN: Soft, nontender, nondistended with good bowel sounds heard. Inguinal area is normal. EXTREMITIES: Without cyanosis, clubbing or edema. NEUROLOGICAL: Gross nonfocal. SKIN: Warm and dry without any rash. - Assessment and Plan (1) Chest pain Current Visit: Yes Status: Acute Assessment and Plan: 11/22 Patient has a history of CAD with stent placements 2 in September 2018 as well as a STEMI August 2018-resented with left-sided chest pain occurring at rest initial troponin was elevated 0.05 Cardiac echo September 2018 Impressions: LVEF 40-45%. Normal LV chamber size, wall thickness. Mild global left ventricular systolic dysfunction. LVEF has improved compared to prior reports. We will continue to trend troponins cardiac monitoring Continue with aspirin and Plavix statin BB Nitroglycerin as needed for chest pain Cardiology has been consulted. 11/23 Troponin was at a flat rate, inconsistent with acute [place]. he has no chest pain, he is currently on aspirin and Plavix. Cardiology consulted. 11/24 Due to persistent chest pain, cardiology decided [facility] today. Continue monitoring. (2) Elevated troponin Current Visit: Yes Status: Acute Assessment and Plan: Experiencing chest pain-history of STEMI recent stent placements. trop at a flat level 0.05, inconsistent with acute [place]. Cardiology has been consulted (3) Tobacco use Current Visit: No Status: Chronic Assessment and Plan: Patient is a current smoker encourage patient stop smoking nicotine patch as needed (4) CAD (coronary artery disease) Current Visit: Yes Status: Chronic Assessment and Plan: Jacquie home medications including DAPT. (5) DVT prophylaxis Current Visit: Yes Status: Acute Assessment and Plan: heparin subcutaneous - Time Spent with Patient Total time spent is greater than 50% in coordination of care (as documented) at patient's floor/unit and/or counseling patient: Greater than 35 minutes Plan of Care Discussed with: patient Internal Medicine: Result - Labs CBC & Chem 7: 11/23/18 08:28 11/23/18 08:28 - ABG Interpretation ABG results: PT/INR, D-dimer PT 11.3 Seconds (9.4-12.1) 11/22/18 09:45 - Impressions Impressions Echocardiogram Limited Views 11/23/18 13:01 Impressions: LVEF 45-50%. Normal right ventricular structure and function. Left Ventricular Wall Motion: Rest Echo Findings The apex, apical inferior, mid inferior, basal inferior, apical anterior, mid anterior, basal anterior, apical septal, mid inferior septal, basal inferior septal, apical lateral, mid anterior lateral, basal anterior lateral, mid anterior septal, mid inferior lateral, basal anterior septal and basal inferior lateral gil were hypokinetic. Findings: Study Quality * Technically adequate exam. ECG Findings * Normal sinus rhythm. Left Ventricle * LVEF 45-50%. * LV chamber size and wall thickness measurements are normal. Right Ventricle * Normal right ventricular structure and function. Aorta * Normally sized aortic root. Pericardium * There is no pericardial effusion present. IVC * Normal IVC dimensions and inspiratory collapse. Consult Discharge Plan - Plan Instructions: Chest Pain (DC) Referrals: Hayden Hurd DO [Primary Care Provider] - (Web request. Office will call with date and time of appointment. Thank you) Prescriptions: Isosorbide MONOnitrate (24 HR) [Imdur] 30 mg PO DAILY #30 tab.er.24h Nitroglycerin 0.4 mg SL Q5MPRN PRN #20 tab.subl PRN Reason: Chest Pain (1) Chest pain Qualifiers: Chest pain type: unspecified Qualified Code(s): R07.9 - Chest pain, unspecified (4) CAD (coronary artery disease) Qualifiers: Coronary Disease-Associated Artery/Lesion type: [place] artery [place] vs. transplanted heart: [place] heart Associated angina: angina presence unspecified Qualified Code(s): I25.10 - Atherosclerotic heart disease of [place] coronary artery without angina pectoris
--- NOTE | 2018-11-24 13:06 | Pre-Sedation Evaluation ---
Pre-sedation evaluation - Pre-sedation checklist Date of procedure: 11/24/18 Procedure: cardiac cath Recent Vitals: Last Vital Signs Temp 98.1 F 11/24/18 11:23 Pulse 60 11/24/18 11:23 Resp 15 11/24/18 11:23 BP 121/68 11/24/18 11:23 Pulse Ox 97 11/24/18 11:23 H&P (including ROS) documented in medical record: Yes Previous reaction to sedatives/anesthetics: No Dietary Status: NPO after Midnight Airway Assessment: Patient can open mouth completely, TMJ function normal Dentition: No loose teeth or bridges Possible difficult airway: No ASA Classification *see protocol: CLASS II-Mild systemic disease Cardiac Registry (Cardio Only) - Functional Capacity Functional Capacity: >=4 METS with symptoms - Clincal Frailty Scale Clinical Frailty Scale: Well
[2018-11-24] MEDS ORDERED: 0.9 % Sodium Chloride 1,000 ML ONE (13:51)
[2018-11-24] MEDS ORDERED: Nitroglycerin 1,000 MCG/10 ML VIAL IV ONE (13:52)
[2018-11-24] MEDS ORDERED: *HR* Heparin 10,000 UNIT/10 ML VIAL ONE (13:52)
[2018-11-24] MEDS ORDERED: Heparin 1,000 UNITS/500 mL 500 ML ONE (13:52)
[2018-11-24] MEDS ORDERED: ISOVUE-370 200 ML INFUS..BTL ONE (13:52)
[2018-11-24] MEDS ORDERED: *HR* Midazolam HCl 2 MG/2 ML VIAL ONE (14:14)
[2018-11-24] MEDS ORDERED: Verapamil 5 MG/2 ML VIAL ONE (14:27)
--- NOTE | 2018-11-24 15:04 | Invasive Diagnostic Lab Proc ---
Name: Riya King Date of Study: 11/24/2018 Date: 1960 Ht: 68.1in Medical Record#: [id number] Age: 58 Wt: 171.96lb Gender: Male BSA: 1.92 Order #: [id number] BMI: 26.06 Physicians Procedure Physician: Elijah Parr MD Referring MD: Referring MD: Staff Name Position Time In Ole Sherwood RN Monitor 02:11 PM Brittany Cope RN Prep Cook 02:11 PM Josh Pérez RN Nurse 02:12 PM Nieves Caal RT (R) Scrub 02:12 PM Erika Monteiro RT (R) RT 02:12 PM Procedures Performed Procedure L HRT ARTERY/VENTRICLE ANGIO Pre-Procedure Checklist Informed consent is complete signed and on chart. H&P is on chart. ID band is on and ID verified with patient. Patient NPO for procedure The procedure was described for the patient and questions were answered. ECG is on chart. Plan of Care Patient will tolerate the procedure without complications. Adequate level of comfort will be maintained. Hemodynamics will remain stable Patient will recover from procedure without complications. Respiratory function will be maintained. Cardiac rhythm will remain stable. Patient temperature will be maintained. Patient and/or family have verbalized understanding of the procedure. Patient Education Chief Complaint/Reason for Test: Cardiac Cath Developmental Category: Adult (18-64 years) Developmentally Appropriate for Age: Yes Learning Barriers: None Education Needs: Procedure Education Method: Verbal Information Taught: Cardiac Cath Educational Evaluation: Able to repeat information Intravenous Access Time IV Size Location DC'd Fluid/Drip Rate Units RN 18g 1 07/01" Patent On Arrival 0.9NaCl ml/hr Allergies gabapentin Vital Signs Time BP (mmHg) HR (bpm) O2 Sat. RR (bpm) LOC 02:12 PM / % 5 = Fully awake and oriented or at pre-proc level 02:13 PM / % 4 = Oriented but drowsy 02:18 PM 106 / 72 60 98 % 31 02:22 PM 97 / 72 65 96 % 12 02:27 PM 90 / 70 63 95 % 17 02:32 PM 96 / 64 79 97 % 36 02:37 PM 92 / 66 69 95 % 14 02:43 PM 100 / 65 60 96 % 30 Procedural Medications Time Medication Dose Units Method Given By 02:13 PM Oxygen 2 L/min nasal cannula Brittany Cope RN 02:19 PM Versed 2 mg Intravenous Josh Pérez RN 02:30 PM Lidocaine 2% 2 ml Subcutaneous Elijah Parr MD 02:32 PM Heparin 4000 units Nitroglycerin 200 mcg Verapamil 2.5 mg Intraarterial Elijah Parr MD ASA Classification: CLASS II- Mild systemic disease (i.e. well-controlled diabetes, hypertension, asthma, cigarette smoking) Lissette Score Preprocedure Postprocedure Activity 2- Moves 4 extremities sustained head lift Activity 2- Moves 4 extremities sustained head lift Circulation 2- SBP +/= 20 points of pre-anesthetic level Circulation 2- SBP +/= 20 points of pre-anesthetic level Consciousness 2- Awake and alert oriented x 3 Consciousness 2- Awake and alert oriented x 3 O2 Saturation 2- Able to maintain O2 satruation of 92% on room air O2 Saturation 2- Able to maintain O2 satruation of 92% on room air Respiratory 2- Able to deep breathe and cough well Respiratory 2- Able to deep breathe and cough well Total Score 10 Total Score 10 Contrast Agent: Isovue Diagnostic Contrast: 60 ml Total Contrast: 60 ml Fluoro Dose: 49 mGy Procedure Log Time Note Enter By 02:05 PM CathStat 02:10 PM 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 Informed consent was obtained. oparker 02:11 PM Ole Sherwood RN Position: Monitor Time in: 14:11 oparker 02:12 PM Procedure start 14:12 oparker 02:12 PM Brittany Cope RN Position: Nurser Time in: 14:11 oparker 02:12 PM Josh Pérez RN Position: Prep Cook Time in: 14:12 oparker 02:12 PM Nieves Caal RT (R) Position: Scrub Time in: 14:12 oparker 02:12 PM Erika Monteiro RT (R) Position: RT Time in: 14:12 oparker 02:12 PM Patient charges- Angio tray pack, Navilyst 3mm J, Pulse Oximetry and ACIST tubing and transducer oparker 02:13 PM Time: 14:12LOC: 5 = Fully awake and oriented or at pre-proc level oparker 02:13 PM Time: 14:13 Patient comfortable and pain free: Yes oparker 02:13 PM Time: 14:13 Oxygen on at 2 L/min per nasal cannula by Brittany Cope RN opararben 02:15 PM ASA Class CLASS II- Mild systemic disease (i.e. well-controlled diabetes, hypertension, asthma, cigarette smoking) oparker 02:16 PM Vitals capture started with the following parameters, Patient=Adult, Interval=5 min, Initial Jjstjvuq=798 mmHg, Deflation Rate=5 mmHg, Cuff placed on Left Arm 02:17 PM Recorded ECG: HR=64 Condition=Condition 1 02:17 PM Hair removed from procedure site in holding area using clippers. Right wrist and Right groin prepped with Chloraprep by Nieves Caal), then patient was draped. Skin intact. oparker 02:18 PM HR=60 bpm, XMYM=841/72 mmhg, SpO2=98.0 %, Resp=31 B/min, Comment=NSR 02:19 PM Time: 14:19 Versed 2 mg Intravenous Given by Josh Pérez RN oparker 02:22 PM HR=65 bpm, NIBP=97/72 mmhg, SpO2=96.0 %, Resp=12 B/min, Comment=NSR 02:25 PM Time out was performed according to hospital policy. Conscious sedation and anesthesia was achieved (see medication log with in this report above) oparker 02:27 PM HR=63 bpm, NIBP=90/70 mmhg, SpO2=95.0 %, Resp=17 B/min, Comment=NSR 02:28 PM Time: 14:13LOC: 4 = Oriented but drowsy oparker 02:28 PM Time: 14:13 Patient comfortable and pain free: Yes oparker 02:30 PM Time: 14:30 2 ml Lidocaine 2% to right radial Subcutaneous Given by Elijah Parr MD opararben 02:30 PM Pressure channel 2 zeroed. 02:31 PM Access obtained by percutaneous puncture. 5Fr 10cm Terumo Beaver sheath placed in right Radial artery. [id number] oparker 02:32 PM Time: 14:32 Patient given 4,000 units Heparin, 200 mcg Nitroglycerin, and 2.5 mg Verapamil Intraarterial by Elijah Parr MD. This is given to reduce risk of vessel spasm and thrombosis. oparker 02:32 PM HR=79 bpm, NIBP=96/64 mmhg, SpO2=97.0 %, Resp=36 B/min, Comment=NSR 02:32 PM 0.035 260cm Navilyst 3mmJ wire [id number] oparker 02:33 PM 5Fr FL 3.5 catheter inserted over the wire [id number] oparker 02:34 PM Recorded Pressure: Ao, HR=60, Condition=Condition 1 (Aorta) Ao 87/78/83 02:35 PM LCA angiography performed in multiple views. oparker 02:36 PM Catheter removed oparker 02:37 PM 5Fr FR 4 catheter inserted over the wire DNC oparker 02:37 PM HR=69 bpm, NIBP=92/66 mmhg, SpO2=95.0 %, Resp=14 B/min, Comment=NSR 02:38 PM RCA angiography performed in multiple views. oparker 02:39 PM Catheter removed oparker 02:39 PM 5Fr Pigtail catheter inserted over the wire DNC oparker 02:40 PM Recorded Pressure: LV, HR=65, Condition=Condition 1 (Left Ventricle) LV 95/24/25 02:40 PM Catheter crossed the aortic valve and was selectively placed in the left ventricle. Pressures recorded on pullback for left heart catheterization. oparker 02:40 PM Recorded Pressure: LV, Ao, HR=65, Condition=Condition 1 (Left Ventricle) LV 80/19/44, (Aorta) Ao 84/17/45 02:41 PM Bolus angiogram of left Ventricle complete: 12 ml/sec for a total of 36 mls oparker 02:42 PM Catheter removed oparker 02:42 PM Wire removed oparker 02:42 PM Procedure completed at 14:42 11/24/2018 oparker 02:42 PM Sign out completed: Radiation Dose 183.97 mGy, 49.2 mGy/cm2 Fluoro Time: 2.7 Isovue 370 - 200ml contrast 60 ml given by Elijah Parr MD. Complications: None. The patient was discharged out of the labor representative in stable condition. Sedation minutes 22. Cardiac Rehab Consult needed: No. Confirmed administered medications: Yes oparker 02:42 PM Isovue 370 - 200ml,1 Bottle(s) used. oparker 02:42 PM Estimated Blood Loss: minimal oparker 02:43 PM Post ECG NSR oparker 02:43 PM Post Blood Pressure 92/66 oparker 02:43 PM 14:43 Post Pulses Bilateral DP 2+ oparker 02:43 PM Information taught Cardiac Cath and Vasc Band oparker 02:43 PM HR=60 bpm, VLLO=969/65 mmhg, SpO2=96.0 %, Resp=30 B/min, Comment=NSR 02:44 PM Education needs Procedure, Plan of Care, and Disease Process oparker 02:44 PM Learning barriers :None oparker 02:44 PM Education Methods Verbal oparker 02:44 PM Education evaluation Able to repeat information oparker 02:44 PM Arterial sheath pulled, Vasc Band closure device used and was Successful S/N. oparker 02:44 PM 12 ml air in Vasc Band. oparker 02:45 PM Site status No bleeding/hematoma - Rt Groin as reported by Sites, Nieves RT (R) at 14:45 oparker 02:46 PM Did you address CECY flow and Dominance? YesCoronary Dominance: right oparker 02:46 PM No family present oparker 02:47 PM Lesion found in Proximal LAD. Pre Stenosis: 25 Pre CECY Flow: oparker 02:47 PM Lesion found in Mid LAD. Pre Stenosis: 20 Pre CECY Flow: oparker 02:47 PM Lesion found in Distal LAD. Pre Stenosis: 10 Pre CECY Flow: oparker 02:48 PM Lesion found in Proximal Circumflex. Pre Stenosis: 20 Pre CECY Flow: oparker 02:48 PM Lesion found in Mid Circumflex. Pre Stenosis: 20 Pre CECY Flow: oparker 02:49 PM Lesion found in Proximal RCA. Pre Stenosis: 20 Pre CECY Flow: oparker 02:49 PM Lesion found in Mid RCA. Pre Stenosis: 20 Pre CECY Flow: oparker 02:49 PM Proximal Left Anterior Descending Coronary Artery with 25% stenosis. If graft is supplying this territory, 0 % stenosis. oparker 02:49 PM Mid/Distal Left Anterior Descending Coronary Artery and diagonal branches with 20% stenosis. If graft is supplying this area, 0 % stenosis oparker 02:49 PM Circumflex, Obtuse Marginal, Left Posterior Descending, and Left Posterolateral Coronary Arteries with 20 % stenosis. If graft is supplying this area, 0 % stenosis oparker 02:49 PM Right Coronary, Right Posterior Descending Arteries with Right Posterolateral and Acute Marginal branches with 20 % stenosis. If graft is supplying this area, 0 % stenosis oparker 02:49 PM Patient out of room: 14:49 oparker 02:52 PM Report given to Dagmar MARTIN Pt taken to 3A Room #33. 14:51 oparker Complications Complication None Hemodynamics Pressures Site Systolic/A Wave Diastolic/V Wave Mean AO 87 78 83 LV 95 24 25 LV 80 19 44 AO 84 17 45 Post Procedure Information Blood Pressure: 92/66 mmHg Rhythm: NSR Post procedural instructions were given Closure Device Time Device Success/Fail 11/24/2018 2:50:00 PM Mechanical Compression Successful Site Checks Time Location Status Staff Sheath In? Note 02:45 PM Rt Groin No bleeding/hematoma Sites, Nieves RT (R) Pulses Time Site Pre-Procedure Post-Procedure Note Bilateral DP & PT 2+ Bilateral radial 2+ 2:43:00 PM Bilateral DP 2+ Updated by Ole Sherwood RN on 11/24/2018 2:56:52 PM electronically signed on 11/24/2018 2:57:34 PM with status of Final
--- NOTE | 2018-11-24 15:27 | Event Note ---
Date of Encounter: 11/24/18 Time of Encounter: 15:26 - Cardiology Event Note LHC completed. There is mild 3V CAD. The left ventricle is normal and has mildly Abnormal contractility EF 45% Stent placed from a prior procedure in the 1st Diagonal is is patent. Stent placed from a prior procedure in the Distal RCA is is patent. No intervention. Continue ASA, PLavix, Statin, BB, Nitrates. Cardiology signing off .Reconsult PRN. Will coordinate outpt follow-up in 3-4 weeks.
[2018-11-24 16:00] VITALS: BP 151/79
[2018-11-25] MEDS ORDERED: Isosorbide MONOnitrate (24 HR) 60 MG TAB.ER.24H PO SCH (09:00)
== END 2018-11-24 18:30 | disposition home or self-care (01) ==
LOC: 3ANU 09:23 → EMEROOARM 09:23 → 3ANU 11:56
PROVIDERS: ADMIT Internal Medicine Nephrology; ATTEND Internal Medicine Nephrology